=== PATIENT | female | born 2000 | race American Indian/Alaskan Native ===

== ENCOUNTER 2018-12-14 14:00 | Emergency (ER) | payer SELFPAY ==
[2018-12-14 14:17] VITALS: BP 113/65
--- NOTE | 2018-12-14 14:18 | Emergency Department Report ---
Blank Doc - Documentation Documentation: 18-year-old female that presents with pelvic pains. Denies any vaginal bleeding. Stated is about 8 weeks . This initial assessment/diagnostic orders/clinical plan/treatment(s) is/are subject to change based on patient's health status, clinical progression and re-assessment by fellow clinical providers in the ED. Further treatment and workup at subsequent clinical providers discretion. Patient/guardians urged not to elope from the ED as their condition may be serious if not clinically assessed and managed. Initial orders include: 1- Patient sent to [facility] for further evaluation and treatment 2- labs 3- UA 4- US OB
[2018-12-14 15:28] LABS: Bilirubin,Urine NEG (Negative); Blood,Urine NEG (Negative); Color,Urine Yellow (Yellow); Mucus,Urine FEW /HPF; Protein,Urine <15 mg/dL mg/dL (Negative); Urobilinogen,Urine < 2.0 mg/dL (<2.0)
[2018-12-14 16:05] LABS: Basophils % (Auto) 0.4 % (0.0-1.8); Eosinophils # (Auto) 0.1 K/mm3 (0.0-0.4); Eosinophils % (Auto) 1.1 % (0.0-4.3); Hemoglobin 13.1 gm/dl (10.1-14.3); Lymphocytes # (Auto) 2.1 K/mm3 (1.2-5.4); Lymphocytes % (Auto) 19.2 % (13.4-35.0); Mean Corpuscular HGB Conc 32 % (30-34); Mean Corpuscular Volume 76 fl (79-97); Monocytes # (Auto) 0.6 K/mm3 (0.0-0.8); Monocytes % (Auto) 5.4 % (0.0-7.3); Platelet Count 262 K/mm3 (140-440); Red Blood Count 5.42 M/mm3 (3.65-5.03); Red Cell Distribution Width 17.8 % (13.2-15.2)
[2018-12-14 16:09] LABS: BUN/Creatinine Ratio 15; Blood Urea Nitrogen 9 mg/dL (7-17); Calcium 9.4 mg/dL (8.4-10.2); Hemolysis Index 8
--- NOTE | 2018-12-14 17:25 | Ultrasound Report ---
OB ultrasound FINDINGS: A gestational sac and yolk sac are seen within the uterine fundus without pole.. Ying urements reveal an MA of 6 weeks 4 days for an EDC of 08/05/2019. This is ahead of the clinical dates. Minimal free fluid is seen. The right ovary is normal. Left ovary contains an avascular mass measurin g 2.1 x 1.2 x 1.9 cm. This may represent a hemorrhagic corpus luteum cyst. Signer Name: Robert Beckford MD Signed: 12/14/2018 5:21 PM Workstation Name: [id number]
--- NOTE | 2018-12-14 18:39 | Emergency Department Report ---
ED Female HPI - General Chief complaint: Abdominal Pain Stated complaint: 8 WKS PREG/ABD PAIN/CRAMPING Time Seen by Provider: 12/14/18 14:16 Source: patient Mode of arrival: Wheelchair Limitations: No Limitations - History of Present Illness Initial comments: 18-year-old female last was her period of 10/28/2018 at approximately 8 weeks with no care yet presents to ED complaining of lower pelvic pain. Presents to ED complaining of lower pelvic pain that started today. Patient denies vaginal bleeding, vaginal discharge, nausea vomiting or any other problems. MD Complaint: pelvic pain Radiation: non-radiating - Related Data Previous Rx's Medication Instructions Recorded Last Taken Type Acetaminophen [Acetaminophen ER] 650 mg PO TID #30 tablet.er 12/14/18 Unknown Rx Allergies Allergy/AdvReac Type Severity Reaction Status Date / Time No Known Allergies Allergy Unverified 12/14/18 14:02 ED Review of Systems ROS: Stated complaint: 8 WKS PREG/ABD PAIN/CRAMPING Other details as noted in HPI Comment: All other systems reviewed and negative ED Past Medical Hx - Past Medical History Previous Medical History?: No - Surgical History Past Surgical History?: No - Social History Smoking Status: Never Smoker Substance Use Type: None - Medications Home Medications: Home Medications Medication Instructions Recorded Confirmed Last Taken Type Acetaminophen [Acetaminophen ER] 650 mg PO TID #30 tablet.er 12/14/18 Unknown Rx ED Physical Exam - General Limitations: No Limitations General appearance: alert, in no apparent distress - Head Head exam: Present: atraumatic, normocephalic - Eye Eye exam: Present: normal appearance - ENT ENT exam: Present: mucous membranes moist - Neck Neck exam: Present: normal inspection - Respiratory Respiratory exam: Present: normal lung sounds bilaterally. Absent: respiratory distress - Cardiovascular Cardiovascular Exam: Present: regular rate, normal rhythm. Absent: systolic murmur, diastolic murmur, rubs, gallop - GI/Abdominal GI/Abdominal exam: Present: soft, normal bowel sounds - Extremities Exam Extremities exam: Present: normal inspection - Back Exam Back exam: Present: normal inspection - Neurological Exam Neurological exam: Present: alert, oriented X3 - Psychiatric Psychiatric exam: Present: normal affect, normal mood - Skin Skin exam: Present: warm, dry, intact, normal color. Absent: rash ED Course Vital Signs 12/14/18 14:09 Temperature 97.8 F Pulse Rate 82 Respiratory 18 Rate Blood Pressure 113/65 O2 Sat by Pulse 99 Oximetry ED Medical Decision Making - Lab Data Result diagrams: 12/14/18 15:22 12/14/18 15: Laboratory Last Values WBC 10.9 K/mm3 (4.5-11.0) 12/14/18 15: RBC 5.42 M/mm3 (3.65-5.03) H 12/14/18 15:22 Hgb 13.1 gm/dl (10.1-14.3) 12/14/18 15:22 Hct 41.0 % (30.3-42.9) 12/14/18 15: MCV 76 fl (79-97) L 12/14/18 15: MCH 24 pg (28-32) L 12/14/18 15: MCHC 32 % (30-34) 12/14/18 15: RDW 17.8 % (13.2-15.2) H 12/14/18 15: Plt Count 262 K/mm3 (140-440) 12/14/18 15:22 Lymph % (Auto) 19.2 % (13.4-35.0) 12/14/18 15:22 [place] % (Auto) 5.4 % (0.0-7.3) 12/14/18 15:22 Eos % (Auto) 1.1 % (0.0-4.3) 12/14/18 15:22 Baso % (Auto) 0.4 % (0.0-1.8) 12/14/18 15: Lymph # 2.1 K/mm3 (1.2-5.4) 12/14/18 15:22 [place] # 0.6 K/mm3 (0.0-0.8) 12/14/18 15:22 Eos # 0.1 K/mm3 (0.0-0.4) 12/14/18 15:22 Baso # 0.0 K/mm3 (0.0-0.1) 12/14/18 15:22 Seg Neutrophils % 73.9 % (40.0-70.0) H 12/14/18 15:22 Seg Neutrophils # 8.0 K/mm3 (1.8-7.7) H 12/14/18 15:22 Sodium 139 mmol/L (137-145) 12/14/18 15:22 Potassium 3.8 mmol/L (3.6-5.0) 12/14/18 15:22 Chloride 102.1 mmol/L (98-107) 12/14/18 15:22 Carbon Dioxide 20 mmol/L (22-30) L 12/14/18 15:22 Anion Gap 21 mmol/L 12/14/18 15:22 BUN 9 mg/dL (7-17) 12/14/18 15:22 Creatinine 0.6 mg/dL (0.7-1.2) L 12/14/18 15:22 Estimated GFR > 60 ml/min 12/14/18 15:22 BUN/Creatinine Ratio 15 % 12/14/18 15:22 Glucose 82 mg/dL (65-100) 12/14/18 15:22 Calcium 9.4 mg/dL (8.4-10.2) 12/14/18 15:22 HCG, Quant 13660 mIU/mL (0-4) H 12/14/18 15:22 Urine Color Yellow (Yellow) 12/14/18 14:55 Urine Turbidity Slightly-cloudy (Clear) 12/14/18 14:55 Urine pH 6.0 (5.0-7.0) 12/14/18 14:55 Ur Specific [place] 1.015 (1.003-1.030) 12/14/18 14:55 Urine Protein <15 mg/dl mg/dL (Negative) 12/14/18 14:55 Urine Glucose (UA) Neg mg/dL (Negative) 12/14/18 14:55 Urine Ketones 20 mg/dL (Negative) 12/14/18 14:55 Urine Blood Neg (Negative) 12/14/18 14:55 Urine Nitrite Neg (Negative) 12/14/18 14:55 Urine Bilirubin Neg (Negative) 12/14/18 14:55 Urine Urobilinogen < 2.0 mg/dL (<2.0) 12/14/18 14:55 Ur Leukocyte Esterase Sm (Negative) 12/14/18 14:55 Urine WBC (Auto) 2.0 /HPF (0.0-6.0) 12/14/18 14:55 Urine RBC (Auto) 3.0 /HPF (0.0-6.0) 12/14/18 14:55 U Epithel Cells (Auto) 5.0 /HPF (0-13.0) 12/14/18 14:55 Urine Mucus Few /HPF 12/14/18 14:55 - Radiology Data Radiology results: report reviewed, image reviewed : 2000 Acct:[id number] Age/Sex: 18 / F ADM Date: 12/14/18 Loc: ED Attending Dr: Ordering Physician: LOUISE DILLON NP Date of Service: 12/14/18 Procedure(s): US OB <= 14 weeks fetus Accession Number(s): [id number] cc: LOUISE DILLON NP OB ultrasound FINDINGS: A gestational sac and yolk sac are seen within the uterine fundus without pole.. Measurements reveal an MA of 6 weeks 4 days for an EDC of 08/05/2019. This is ahead of the clinical dates. Minimal free fluid is seen. The right ovary is normal. Left ovary contains an avascular mass measuring 2.1 x 1.2 x 1.9 cm. This may represent a hemorrhagic corpus luteum cyst. Signer Name: Robert Beckford MD Signed: 12/14/2018 5:21 PM Workstation Name: [id number] Transcribed By: Dictated By: Robert Beckford MD Electronically Authenticated By: Robert Beckford MD Signed Date/Time: 12/14/18 1721 - Medical Decision Making 18-year-old female presents to ED with pelvic pain in ED course: Pt received ultra sound, CBC, urinalysis, test and quantitative ED All labs within normal limits, quantitative elevated matching gestation age Patient states that she be going to [facility] as her [facility] Ultrasound shows yolk sac and gestational sac with no pole at this time. I discussed with the patient if follow-up with her [facility] soon as possible in 2- 3 days I discussed all labs and ultrasound findings with the patient. I discussed with the patient that he if bleeding worsens or new symptoms develop to return to ED immediately Critical care attestation.: If time is entered above; I have spent that time in minutes in the direct care of this critically ill patient, excluding procedure time. ED Disposition Clinical Impression: Pelvic pain during Disposition: DC-01 TO HOME OR SELFCARE Is pt being admited?: No Does the pt Need Aspirin: No Condition: Stable Instructions: Abdominal Pain (ED), (ED), Abdominal Pain in (ED) Additional Instructions: Make sure to follow up with the primary care physician as discussed. Take Tylenol as needed for pain. Call your [employer] today and make an appointment in 2-3 days for follow-up If you have any worsening symptoms or develop new symptoms please return to ED immediately. Prescriptions: Acetaminophen [Acetaminophen ER] 650 mg PO TID #30 tablet.er Referrals: PRIMARY CARE, [Primary Care Provider] - 3-5 Days Forms: Accompanied Note, Work/School Release Form(ED) Time of Disposition: 18:43
== END 2018-12-14 20:22 | disposition home or self-care (01) ==
LOC: ED 14:00
DX: O26.891 Other specified pregnancy related conditions, first trimester (principal); R10.2 Pelvic and perineal pain; Z79.899 Other long term (current) drug therapy; Z3A.01 Less than 8 weeks gestation of pregnancy
CPT/HCPCS: 36415; 76801; 76817; 80048; 81001; 84702; 85025